=== PATIENT | female | born 1995 | race Caucasian/White ===

== ENCOUNTER 2016-05-25 15:36 | Emergency (ER) | payer MEDICAID, OTHER ==
[2016-05-25 15:47] VITALS: O2SAT 98
--- NOTE | 2016-05-25 16:16 | ERPHSYRPT ---
- History of Present Illness Time Seen by Provider: 05/25/16 16:09 Historian: patient, other (so) Exam Limitations: no limitations Patient Subjective Stated Complaint: rt upper quad pain for 2 days Triage Nursing Assessment: rt upper quad pain for 2 days. pain is reproducable with palpation. normal bm yesterday. no fever. heating pad helps pain. no pain with urination. skin warm and dry Physician History: The patient is a 20-year-old female accompanied by her boyfriend complaining of 2 days of right upper quadrant abdominal pain. Sometimes the pain gets a little worse but it is constantly there. No nausea vomiting or diarrhea. She has a surgical history significant for appendectomy. Timing/Duration: day(s) (2) Activities at Onset: none Quality: aching Abdominal Pain Onset Location: RUQ Pain Radiation: no radiation Severity of Pain-Max: moderate Severity of Pain-Current: moderate Modifying Factors: Improves With: nothing Associated Symptoms: denies symptoms Previous symptoms: no prior history Allergies/Adverse Reactions: No Known Drug Allergies Allergy (Unverified 05/25/16 15:46) Home Medications: Norethindrone-E.estradiol-Iron [Microgestin Fe 1-20 Tablet] 1 each PO DAILY 10/04 [History] Hx Tetanus, Diphtheria Vaccination/Date Given: Yes Hx Influenza Vaccination/Date Given: No Hx Pneumococcal Vaccination/Date Given: No Immunizations Up to Date: Yes - Review of Systems Constitutional: No Fever, No Chills Eyes: No Symptoms Ears, Nose, & Throat: No Symptoms Respiratory: No Cough, No Dyspnea Cardiac: No Chest Pain, No Edema, No Syncope Abdominal/Gastrointestinal: Abdominal Pain, No Nausea, No Vomiting, No Diarrhea Genitourinary Symptoms: No Dysuria Musculoskeletal: No Back Pain, No Neck Pain Skin: No Rash Neurological: No Dizziness, No Focal Weakness, No Sensory Changes Psychological: No Symptoms Endocrine: No Symptoms Hematologic/Lymphatic: No Symptoms Immunological/Allergic: No Symptoms All Other Systems: Reviewed and Negative - Past Medical History Pertinent Past Medical History: No - Past Surgical History Past Surgical History: Yes Gastrointestinal: Appendectomy - Social History Smoking Status: Never smoker Exposure to second hand smoke: Yes Drug Use: none Patient Lives Alone: No - Female History Hx Last Menstrual Period: 3 weeks - Nursing Vital Signs Nursing Vital Signs: Initial Vital Signs Temperature 98.6 F Temperature Source Oral Pulse Rate 72 Respiratory Rate 16 Blood Pressure 127/77 Pain Intensity 3 - Physical Exam General Appearance: mild distress Eye Exam: PERRL/EOMI, eyes nml inspection Ears, Nose, Throat Exam: normal ENT inspection, pharynx normal, moist mucous membranes Neck Exam: normal inspection, non-tender, supple, full range of motion Respiratory Exam: normal breath sounds, lungs clear, No respiratory distress Cardiovascular Exam: regular rate/rhythm, normal heart sounds Gastrointestinal/Abdomen Exam: tenderness (RUQ) Pelvic Exam: not done Rectal Exam: not done Back Exam: normal inspection, normal range of motion, No CVA tenderness, No vertebral tenderness Extremity Exam: normal inspection, normal range of motion, pelvis stable Neurologic Exam: alert, oriented x 3, cooperative, normal mood/affect, nml cerebellar function, sensation nml, No motor deficits Skin Exam: normal color, warm, dry SpO2 Interpretation: normal SpO2: 98 Oxygen Delivery: Room Air - Radiology Ultrasound Exam Right Abdomen Ultrasound: tele radiology report, Other (negative, no gall stones.) Ordered Tests: Active Orders 24 hr Category Date Time Status IV Insertion STAT Care 05/25/16 16:19 Active ABDOMINAL-LIMITED [US] Stat Exams 05/25/16 16:19 Taken CBC W DIFF Stat Lab 05/25/16 16:10 Completed CMP Stat Lab 05/25/16 16:10 Completed HCG QUALITATIVE,SERUM Stat Lab 05/25/16 16:10 Completed LIPASE Stat Lab 05/25/16 16:10 Completed Manual Differential NC Stat Lab 05/25/16 16:10 Completed UA W/ MICROSCOPIC Stat Lab 05/25/16 16:10 Completed Medication Summary Generic Name Dose Route Start Last Admin Trade Name Freq PRN Reason Stop Dose Admin Ceftriaxone Sodium/Dextrose 50 mls @ 100 mls/hr 05/25/16 18:40 Rocephin 1 Gm-D5w 50 Ml Bag IV 05/25/16 19:09 STAT ONE Discontinued Medications Generic Name Dose Route Start Last Admin Trade Name Freq PRN Reason Stop Dose Admin Sodium Chloride 1,000 mls @ 999 mls/hr 05/25/16 16:19 05/25/16 16:39 Sodium Chloride 0.9% 1000 Ml IV 05/25/16 17:19 999 mls/hr .Q1H1M STA Administration Sodium Chloride Confirm 05/25/16 16:35 Sodium Chloride 0.9% 1000 Ml Administered 05/25/16 16:36 Dose 1,000 mls @ ud .ROUTE .STK-MED ONE Ketorolac Tromethamine 30 mg 05/25/16 16:19 05/25/16 16:39 Toradol 30 Mg Injection IV 05/25/16 16:20 30 mg STAT ONE Administration Ketorolac Tromethamine Confirm 05/25/16 16:35 Toradol 30 Mg Injection Administered 05/25/16 16:36 Dose 30 mg .ROUTE .[facility] ONE Lab/Rad Data: Laboratory Result Diagrams 05/25/16 16:10 05/25/16 16:10 Laboratory Results 05/25/16 05/25/16 05/25/16 Range/Units 16:10 16:10 16:10 WBC 9.6 (4.0-10.5) K/mm3 RBC 5.32 (4.1-5.4) M/mm3 Hgb 11.0 L (12.0-16.0) gm/dl Hct 36.3 (35-47) % MCV 68.2 L (78-100) fl MCH 20.6 L (26-32) pg MCHC 30.3 L (32-36) g/dl RDW 18.0 H (11.5-14.0) % Plt Count 324 (150-450) K/mm3 MPV 10.1 H (6-9.5) fl Segmented Neutrophils 56 (36.0-66.0) % Lymphocytes (Manual) 40 (24-44) % Monocytes (Manual) 4 (0.0-12.0) % Differential Comment ABNORMAL Platelet Estimate NORMAL (NORMAL) Anisocytosis 1+ Microcytosis 1+ Sodium 140 (136-145) mEq/L Potassium 4.0 (3.5-5.1) mEq/L Chloride 103 (98-107) mEq/L Carbon Dioxide 25.3 (21-32) mEq/L Anion Gap 15.7 H (5-15) MEQ/L BUN 11 (9-20) mg/dL Creatinine 0.65 (0.55-1.30) mg/dl Estimated GFR > 60 ML/MIN Glucose 86 (70-110) MG/DL Calcium 9.3 (8.5-10.1) mg/dL Total Bilirubin 0.2 (0.2-1.0) mg/dL AST 10 L (15-37) U/L ALT 13 (12-78) U/L Alkaline Phosphatase 59 (46-116) U/L Serum Total Protein 8.5 H (6.4-8.2) gm/dL Albumin 3.6 (3.4-5.0) g/dL Lipase 106 (73-393) U/L Serum , Qual NEGATIVE (Negative) Ur Collection Type Urine Color (YELLOW) Urine Appearance (CLEAR) Urine pH (5-6) Ur Specific [place] (1.005-1.025) Urine Protein (Negative) Urine Glucose (UA) (NEGATIVE) mg/dL Urine Ketones (NEGATIVE) Urine Nitrite (NEGATIVE) Urine Bilirubin (NEGATIVE) Urine Urobilinogen (0-1) mg/dL Urine WBC (Auto) (NEGATIVE) Urine RBC (Auto) (0-5) John/ul Urine Microscopic RBC (0-2) /HPF Urine Microscopic WBC (0-5) /HPF Ur Epithelial Cells (FEW) /HPF Urine Bacteria (NEGATIVE) /HPF Specimen Received 05/25/16 Range/Units 16:10 WBC (4.0-10.5) K/mm3 RBC (4.1-5.4) M/mm3 Hgb (12.0-16.0) gm/dl Hct (35-47) % MCV (78-100) fl MCH (26-32) pg MCHC (32-36) g/dl RDW (11.5-14.0) % Plt Count (150-450) K/mm3 MPV (6-9.5) fl Segmented Neutrophils (36.0-66.0) % Lymphocytes (Manual) (24-44) % Monocytes (Manual) (0.0-12.0) % Differential Comment Platelet Estimate (NORMAL) Anisocytosis Microcytosis Sodium (136-145) mEq/L Potassium (3.5-5.1) mEq/L Chloride (98-107) mEq/L Carbon Dioxide (21-32) mEq/L Anion Gap (5-15) MEQ/L BUN (9-20) mg/dL Creatinine (0.55-1.30) mg/dl Estimated GFR ML/MIN Glucose (70-110) MG/DL Calcium (8.5-10.1) mg/dL Total Bilirubin (0.2-1.0) mg/dL AST (15-37) U/L ALT (12-78) U/L Alkaline Phosphatase (46-116) U/L Serum Total Protein (6.4-8.2) gm/dL Albumin (3.4-5.0) g/dL Lipase (73-393) U/L Serum , Qual (Negative) Ur Collection Type VOID Urine Color YELLOW (YELLOW) Urine Appearance SLIGHTLY CLOUDY (CLEAR) Urine pH 5.5 (5-6) Ur Specific [place] 1.015 (1.005-1.025) Urine Protein 30 (Negative) Urine Glucose (UA) NEGATIVE (NEGATIVE) mg/dL Urine Ketones NEGATIVE (NEGATIVE) Urine Nitrite NEGATIVE (NEGATIVE) Urine Bilirubin NEGATIVE (NEGATIVE) Urine Urobilinogen 0.2 (0-1) mg/dL Urine WBC (Auto) SMALL (NEGATIVE) Urine RBC (Auto) SMALL (0-5) John/ul Urine Microscopic RBC 0-2 (0-2) /HPF Urine Microscopic WBC >100 (0-5) /HPF Ur Epithelial Cells MODERATE (FEW) /HPF Urine Bacteria FEW (NEGATIVE) /HPF Specimen Received 05/25/16 1610 - Progress Progress: improved Counseled pt/family regarding: lab results, diagnosis, need for follow-up - Departure Time of Disposition: 18:41 Departure Disposition: Home Clinical Impression: UTI (urinary tract infection) Condition: Stable Critical Care Time: No Additional Instructions: Tylenol and Ibuprofen as needed. Ciprofloxacin as directed. Follow up in 1 to 2 days. Prescriptions: Ciprofloxacin HCl 500 mg [Cipro 500 MG] 1 tab PO BID #20 tablet
[2016-05-25] MEDS ORDERED: Sodium Chloride 0.9% 1000 ML 1,000 ML IV STA (16:19)
[2016-05-25] MEDS ORDERED: TORAdol 30 mg Injection IV ONE (16:19)
[2016-05-25 16:30] LABS: Mean Cell Volume 68.2 fl (78-100); Mean Platelet Volume 10.1 fl (6-9.5); Platelet Count 324 K/mm3 (150-450); Red Blood Count 5.32 M/mm3 (4.1-5.4); White Blood Count 9.6 K/mm3 (4.0-10.5)
[2016-05-25 16:32] LABS: Mean Corpuscular Hemoglobin 20.6 pg (26-32)
[2016-05-25] MEDS ORDERED: TORAdol 30 mg Injection ONE (16:35)
[2016-05-25] MEDS ORDERED: Sodium Chloride 0.9% 1000 ML 1,000 ML ONE (16:35)
[2016-05-25 16:37] LABS: Collection Type VOID; Ph 5.5 (5-6)
[2016-05-25 16:38] LABS: COMPLETE URINE MICROSCOPIC? YES
[2016-05-25 16:39] LABS: ALBUMIN 3.6 g/dL (3.4-5.0); ALKALINE PHOSPHATASE 59 U/L (46-116); ANION GAP 15.7 MEQ/L (5-15); BILIRUBIN,TOTAL 0.2 mg/dL (0.2-1.0); BLOOD UREA NITROGEN 11 mg/dL (9-20); CHLORIDE 103 mEq/L (98-107); Carbon Dioxide 25.3 mEq/L (21-32); Glucose 86 MG/DL (70-110); LIPASE 106 U/L (73-393); SGOT/AST 10 U/L (15-37); SGPT/ALT 13 U/L (12-78); SODIUM 140 mEq/L (136-145); Total Protein 8.5 gm/dL (6.4-8.2)
[2016-05-25 17:40] LABS: Total Cells Counted 100
[2016-05-25 17:44] LABS: ANISOCYTOSIS 1+; Microcytosis 1+
[2016-05-25 17:45] LABS: Platelet Estimate NORMAL (NORMAL)
[2016-05-25 17:56] LABS: Bacteria FEW /HPF (NEGATIVE); Epithelial Cells MODERATE /HPF (FEW); WBC >100 /HPF (0-5)
[2016-05-25] MEDS ORDERED: ROCEPHIN 1 Gm-D5w 50 ml Bag** 50 ML IV ONE ×2 (18:40→18:43)
[2016-05-25 19:14] VITALS: BP 128/64; PULSE 81
--- NOTE | 2016-05-26 08:37 | XRAY ---
Indication: Right upper quadrant pain. Two-dimensional right upper quadrant abdominal sonogram performed. Comparison: None Visualized portions of the gallbladder, liver, pancreas, and right kidney appear sonographically normal. Common bile duct measures 5.1 mm. No ascites. Right kidney measures 12.1 cm in length. Impression: Negative right upper quadrant sonogram. Comment: Preliminary report was given.
== END 2016-05-25 19:14 | disposition home or self-care (01) ==
LOC: ED 15:36
DX: N39.0 Urinary tract infection, site not specified (principal); R10.11 Right upper quadrant pain; Z79.899 Other long term (current) drug therapy
CPT/HCPCS: 36000; 36415; 76705; 80053; 81000; 83690; 84703; 85025; 96360; 96365; 96374; 99283; J0696; J1885

== ENCOUNTER 2017-04-22 18:01 | Emergency (ER) | payer OTHER, SELFPAY ==
--- NOTE | 2017-04-22 18:23 | ERPHSYRPT ---
<PHILLY KEMP - Last Filed: 04/22/17 18:37> - History of Present Illness Time Seen by Provider: 04/22/17 18:20 Historian: patient Exam Limitations: no limitations Physician History: mild to mod sharp chest pain today after a breathing treatment for asthma, pain is better now, pt refused pain med, no injury, no fever, lmp 3 weeks ago Timing/Duration: today Allergies/Adverse Reactions: No Known Drug Allergies Allergy (Unverified 05/25/16 15:46) Home Medications: Norethindrone AC-Eth Estradiol [Loestrin 21 1-20 Tablet] 1 each PO HS 04/22/17 [ History] Hx Tetanus, Diphtheria Vaccination/Date Given: Yes Hx Influenza Vaccination/Date Given: No Hx Pneumococcal Vaccination/Date Given: No - Review of Systems Constitutional: No Fever Eyes: No Symptoms Ears, Nose, & Throat: Throat Pain Respiratory: Dyspnea Cardiac: Chest Pain Abdominal/Gastrointestinal: No Symptoms Musculoskeletal: No Back Pain, No Neck Pain Skin: No Symptoms Neurological: No Symptoms - Past Medical History Pertinent Past Medical History: No - Past Surgical History Past Surgical History: Yes Gastrointestinal: Appendectomy - Social History Smoking Status: Never smoker Exposure to second hand smoke: Yes Drug Use: none Patient Lives Alone: No - Female History Hx Now: No (unknown) - Nursing Vital Signs Nursing Vital Signs: Initial Vital Signs Temperature 98.2 F 04/22/17 18:08 Pulse Rate 110 H 04/22/17 18:08 Respiratory Rate 16 04/22/17 18:08 Blood Pressure 147/75 04/22/17 18:08 O2 Sat by Pulse Oximetry 100 04/22/17 18:08 Pain Scale Pain Intensity 0 - Physical Exam General Appearance: no apparent distress Eye Exam: PERRL/EOMI Ears, Nose, Throat Exam: moist mucous membranes Neck Exam: normal inspection Respiratory Exam: normal breath sounds Cardiovascular Exam: tachycardia Gastrointestinal/Abdomen Exam: soft, No tenderness Extremity Exam: normal inspection, normal range of motion, No pedal edema Neurologic Exam: alert, oriented x 3, cooperative Skin Exam: normal color, warm, dry Ordered Tests: Active Orders 24 hr Category Date Time Status Adjunct Professor STAT Care 04/22/17 18:19 Active EKG-ER Only STAT Care 04/22/17 18:18 Active IV Insertion STAT Care 04/22/17 18:18 Active Pulse Oximetry (ED) STAT Care 04/22/17 18:18 Active CHEST 1 VIEW (PORTABLE) Stat Exams 04/22/17 18:19 Taken CHEST WITH CONTRAST [CT] Stat Exams 04/22/17 19:11 Taken ECHO W/2D AND DOPPLER [US] Stat Exams 04/22/17 Ordered CBC W DIFF Stat Lab 04/22/17 18:29 Completed CK-Creatinine Phosphokinase Stat Lab 04/22/17 18:29 Completed CMP Stat Lab 04/22/17 18:29 Completed CULTURE, THROAT Stat Lab 04/22/17 18:29 Received D-DIMER QUANTITATION Stat Lab 04/22/17 18:29 Completed HCG QUALITATIVE,SERUM Stat Lab 04/22/17 18:29 Completed STREP SCREEN-BETA A Stat Lab 04/22/17 18:29 Completed TROPONIN Q3H Lab 04/22/17 18:29 Completed TROPONIN Q3H Lab 04/22/17 21:30 Ordered TROPONIN Q3H Lab 04/23/17 00:30 Ordered TROPONIN Q3H Lab 04/23/17 03:30 Ordered TROPONIN Q3H Lab 04/23/17 06:30 Ordered Urine Triage Profile Stat Lab 04/22/17 18:18 Ordered Medication Summary Discontinued Medications Generic Name Dose Route Start Last Admin Trade Name Freq PRN Reason Stop Dose Admin Diazepam 10 mg 04/22/17 19:17 04/22/17 19:20 Valium 5 Mg PO 04/22/17 19:18 10 mg STAT ONE Administration Diazepam Confirm 04/22/17 19:20 Valium 5 Mg Administered 04/22/17 19:21 Dose 10 mg .ROUTE .STK-MED ONE Lab/Rad Data: Laboratory Result Diagrams 04/22/17 18:29 04/22/17 18:29 Laboratory Results 04/22/17 04/22/17 04/22/17 Range/Units 18:29 18:29 18:29 WBC (4.0-10.5) K/mm3 RBC (4.1-5.4) M/mm3 Hgb (12.0-16.0) gm/dl Hct (35-47) % MCV (78-100) fl MCH (26-32) pg MCHC (32-36) g/dl RDW (11.5-14.0) % Plt Count (150-450) K/mm3 MPV (6-9.5) fl Gran % (36.0-66.0) % Lymphocytes % (24.0-44.0) % Monocytes % (0.0-12.0) % Eosinophils % (0.00-5.0) % Basophils % (0.0-0.4) % Basophils # (0-0.4) D-Dimer (0-500) ng/mL Sodium (136-145) mEq/L Potassium (3.5-5.1) mEq/L Chloride (98-107) mEq/L Carbon Dioxide (21-32) mEq/L Anion Gap (5-15) MEQ/L BUN (9-20) mg/dL Creatinine (0.55-1.30) mg/dl Estimated GFR ML/MIN Glucose (70-110) MG/DL Calcium (8.5-10.1) mg/dL Total Bilirubin (0.2-1.0) mg/dL AST (15-37) U/L ALT (12-78) U/L Alkaline Phosphatase (46-116) U/L Creatine Kinase (26-192) U/L Troponin I < 0.017 (0.000-0.056) ng/ml Serum Total Protein (6.4-8.2) gm/dL Albumin (3.4-5.0) g/dL Serum , Qual NEGATIVE (Negative) Streptococcus Screen NEGATIVE (Negative) 04/22/17 04/22/17 04/22/17 Range/Units 18:29 18:29 18:29 WBC 7.9 (4.0-10.5) K/mm3 RBC 4.87 (4.1-5.4) M/mm3 Hgb 12.7 (12.0-16.0) gm/dl Hct 39.3 (35-47) % MCV 80.7 (78-100) fl MCH 26.1 (26-32) pg MCHC 32.3 (32-36) g/dl RDW 14.5 H (11.5-14.0) % Plt Count 226 (150-450) K/mm3 MPV 10.8 H (6-9.5) fl Gran % 70.1 H (36.0-66.0) % Lymphocytes % 21.6 L (24.0-44.0) % Monocytes % 7.4 (0.0-12.0) % Eosinophils % 0.8 (0.00-5.0) % Basophils % 0.1 (0.0-0.4) % Basophils # 0.01 (0-0.4) D-Dimer 557.25 H* (0-500) ng/mL Sodium 138 (136-145) mEq/L Potassium 3.9 (3.5-5.1) mEq/L Chloride 102 (98-107) mEq/L Carbon Dioxide 23.6 (21-32) mEq/L Anion Gap 16.3 H (5-15) MEQ/L BUN 10 (9-20) mg/dL Creatinine 0.73 (0.55-1.30) mg/dl Estimated GFR > 60 ML/MIN Glucose 83 (70-110) MG/DL Calcium 8.9 (8.5-10.1) mg/dL Total Bilirubin 0.20 (0.2-1.0) mg/dL AST 17 (15-37) U/L ALT 18 (12-78) U/L Alkaline Phosphatase 65 (46-116) U/L Creatine Kinase 36 (26-192) U/L Troponin I (0.000-0.056) ng/ml Serum Total Protein 8.0 (6.4-8.2) gm/dL Albumin 3.7 (3.4-5.0) g/dL Serum , Qual (Negative) Streptococcus Screen (Negative) - Progress Progress Note: 04/22/17 18:[address] Ford at 19:00 - Departure Clinical Impression: CHEST PAIN, ANXIETY Condition: Stable Referrals: DOCTOR,NO FAMILY [Primary Care Provider] - Instructions: Chest Pain Additional Instructions: FOLLOW UP WITH PRIVATE DOCTOR TOMORROW. <JLUIS FORD - Last Filed: 04/22/17 21:08> - History of Present Illness Aspirin Treatment Today: no aspirin today - Course EKG Interpreted by Me: RATE (103), Sinus Tach, NORMAL AXIS, NORMAL INTERVALS - Radiology Exams Chest X-ray Interpretation: Interpreted by me, No Pneumonia - CT Exams Chest CT Interpretation: Tele-radiologist Report (THERE IS NO EVIDENCE OF CENTRAL EMBOLI. SMALL PERICARDIAL EFFUSION.) - Progress Progress Note: 04/22/17 19:[address] FORD 1910: PERRL, EOMI, TM'S NOT INJECTED, PHARYNX PINK WITHOUT EDEMA, LUNGS CLEAR, NO CARDIAC RUB, ABDOMINAL B.S. NORMAL, NO ANKLE EDEMA, NO TREMORS, ALERT & COOPERATIVE, VERY ANXIOUS. - Departure Time of Disposition: 21:08 Departure Disposition: Home Critical Care Time: No
[2017-04-22 18:55] LABS: BASOPHIL % 0.1 % (0.0-0.4); Eosinophil % 0.8 % (0.00-5.0); Granulocytes % 70.1 % (36.0-66.0); Lymphocytes % 21.6 % (24.0-44.0); Mean Cell Volume 80.7 fl (78-100); Mean Corpuscular Hemoglobin 26.1 pg (26-32); Mean Platelet Volume 10.8 fl (6-9.5); Monocytes % 7.4 % (0.0-12.0); Platelet Count 226 K/mm3 (150-450); Red Blood Count 4.87 M/mm3 (4.1-5.4); Red Cell Distribution Width 14.5 % (11.5-14.0); White Blood Count 7.9 K/mm3 (4.0-10.5)
[2017-04-22 19:03] LABS: ALBUMIN 3.7 g/dL (3.4-5.0); ALKALINE PHOSPHATASE 65 U/L (46-116); ANION GAP 16.3 MEQ/L (5-15); BLOOD UREA NITROGEN 10 mg/dL (9-20); CHLORIDE 102 mEq/L (98-107); Carbon Dioxide 23.6 mEq/L (21-32); Glucose 83 MG/DL (70-110); Potassium 3.9 mEq/L (3.5-5.1); SGOT/AST 17 U/L (15-37); SGPT/ALT 18 U/L (12-78); SODIUM 138 mEq/L (136-145)
[2017-04-22] MEDS ORDERED: Valium 5 MG PO ONE (19:17)
[2017-04-22] MEDS ORDERED: Valium 5 MG ONE (19:20)
[2017-04-22 21:24] VITALS: BP 134/82; PULSE 119; O2SAT 96
--- NOTE | 2017-04-23 08:36 | XRAY ---
Indication: Chest/back pain. Elevated d-dimer. Multiple contiguous axial images obtained through the chest using 80 cc Isovue 370 contrast and PE protocol. Comparison: None There is suboptimal opacification of the pulmonary arteries limiting evaluation for pulmonary embolus. No large central pulmonary embolus. Heart is not enlarged. Aorta is normal in course and caliber. No pathologic mediastinal/hilar lymphadenopathy. Lungs are inflated. No suspicious pulmonary mass, infiltrate, or effusion. Bony thorax intact. Limited upper abdomen demonstrate 17 cm splenomegaly. Impression: 1. Limited exam due to suboptimal opacification of the pulmonary arteries. No large central pulmonary embolus. 2. No acute cardiopulmonary abnormalities. 3. Incidental splenomegaly. Comment: Preliminary interpretation was made by [facility]. No critical discrepancy. CT DI 28.13
--- NOTE | 2017-04-23 08:36 | XRAY ---
Indication: Cough. Comparison: None Portable chest demonstrates normal heart, lungs, and bony thorax.
== END 2017-04-22 21:24 | disposition home or self-care (01) ==
LOC: ED 18:01
DX: R07.9 Chest pain, unspecified (principal); F41.9 Anxiety disorder, unspecified
CPT/HCPCS: 36000; 36415; 71010; 71260; 80053; 82550; 84484; 84703; 85025; 85379; 87070; 87430; 93005; 93041; 99284; A9270-GY

== ENCOUNTER 2021-04-08 10:29 | Observation (INO) | payer OTHER ==
--- NOTE | 2021-04-08 12:27 | XRAY ---
Indication: Decreased movement. Ultrasound biophysical profile study performed. Comparison: None Single intrauterine with heart rate 163 bpm. Four-quadrant ROLANDO is 12.3 cm, largest pocket 9.3 cm. 2 points given for breathing, movements, tone, and qualitative amniotic fluid volume. Impression: Total biophysical profile score is 8 out of 8.
[2021-04-11 17:02] VITALS: BP 138/88; PULSE 118
== END 2021-04-08 13:25 | disposition home or self-care (01) ==
LOC: OB 10:29
PROVIDERS: ADMIT Family Medicine; ATTEND Family Medicine
DX: Z34.83 Encounter for supervision of other normal pregnancy, third trimester (principal); Z3A.38 38 weeks gestation of pregnancy
CPT/HCPCS: 59025; 76818; G0378